=== PATIENT | female | born 1975 | race African-American/Black ===

== ENCOUNTER 2022-05-28 09:05 | Outpatient (REF) | payer OTHER, SELFPAY ==
[2022-05-28 13:06] LABS: Fentanyl, urine POSITIVE (Not Detect)
[2022-06-03 08:15] LABS: Codeine, Ur NEGATIVE; Hydrocodone, Ur NEGATIVE; Oxycodone, Ur NEGATIVE
[2022-06-03 08:16] LABS: Hydromorphone, Ur NEGATIVE; Morphine, Ur NEGATIVE; Norhydrocodone, Ur NEGATIVE; Noroxycodone, Ur NEGATIVE; Oxymorphone, Ur NEGATIVE
== END 2022-05-28 09:06 | disposition home or self-care (01) ==
LOC: HO.LAB 09:05
PROVIDERS: PCP Internal Medicine; Visit Provider Nurse Practitioner Psychiatric/Mental Health
DX: F11.20 Opioid dependence, uncomplicated (principal); Z51.81 Encounter for therapeutic drug level monitoring; Z79.899 Other long term (current) drug therapy
CPT/HCPCS: 80305; 80307; 80364; 80365; 99202

== ENCOUNTER → 2022-05-31 09:18 | Outpatient (BNVA) | payer OTHER, SELFPAY | PROVIDERS: PCP Internal Medicine; Visit Provider Nurse Practitioner Psychiatric/Mental Health | DX: F11.20 Opioid dependence, uncomplicated (principal); Z51.81 Encounter for therapeutic drug level monitoring | CPT/HCPCS: 80305; 99212 ==

== ENCOUNTER 2022-06-12 08:29 | Outpatient (REF) | payer OTHER, SELFPAY ==
[2022-06-12 09:55] LABS: Alanine Aminotransferase 35 U/L (0-31); Alkaline Phosphatase 97 U/L (39-117); Anion Gap 11 (12-20); Aspartate Amino Transferase 33 U/L (5-31); Bilirubin Total 0.6 mg/dL (0.0-1.0); Blood Urea Nitrogen 11 mg/dL (9-16); Calcium 9.1 mg/dL (8.4-10.2); Carbon Dioxide 25 mmol/L (22-29); Chloride 107 mmol/L (96-108); Estimated Glomerular Filt Rate > 60; Glucose Random 91 mg/dL (60-115); Potassium 4.3 mmol/L (3.3-5.1); Sodium 139 mmol/L (135-145); Total Protein 7.5 g/dL (6.5-8.0)
[2022-06-12 10:14] LABS: HBS Num1 69.55 mIU/mL (0-7.99); HBc Num1 0.08 S/CO (0.00-0.79); HBsAGNum1 0.24 S/CO (0.00-0.99); Hepatitis A Antibody IgM 0.38 Index (0-0.79); Hepatitis B Core Antibody Nonreactive (Nonreactive); Hepatitis B Surface Antigen Negative (Negative); ~HepC Num1 0.13 S/CO (0.00-0.79); ~Hepatitis A Antibody IgM Nonreactive (Nonreactive); ~Hepatitis B Surface Antibody REACTIVE (Nonreactive); ~Hepatitis C Antibody Nonreactive (Nonreactive)
== END 2022-06-12 08:30 | disposition home or self-care (01) ==
LOC: HO.LAB 08:29
PROVIDERS: Visit Provider Nurse Practitioner Psychiatric/Mental Health
DX: F11.20 Opioid dependence, uncomplicated (principal); Z79.899 Other long term (current) drug therapy
CPT/HCPCS: 36415; 80053; 86704; 86706; 86709; 86803; 87340; 99212

== ENCOUNTER → 2022-06-27 08:58 | Outpatient (BNVA) | payer OTHER, SELFPAY | PROVIDERS: PCP Internal Medicine; Visit Provider Nurse Practitioner Psychiatric/Mental Health | DX: Z51.81 Encounter for therapeutic drug level monitoring (principal); F11.20 Opioid dependence, uncomplicated | CPT/HCPCS: 80305; 99212 ==

== ENCOUNTER → 2022-07-15 09:02 | Outpatient (BNVA) | payer OTHER, SELFPAY | PROVIDERS: PCP Internal Medicine; Visit Provider Nurse Practitioner Psychiatric/Mental Health | DX: Z51.81 Encounter for therapeutic drug level monitoring (principal); F11.20 Opioid dependence, uncomplicated | CPT/HCPCS: 99212 ==

== ENCOUNTER → 2022-08-19 09:35 | Outpatient (BNVA) | payer OTHER, SELFPAY | PROVIDERS: PCP Internal Medicine; Visit Provider Nurse Practitioner Psychiatric/Mental Health | DX: Z51.81 Encounter for therapeutic drug level monitoring (principal); F11.20 Opioid dependence, uncomplicated | CPT/HCPCS: 80305; 99212 ==

== ENCOUNTER → 2022-09-23 09:03 | Outpatient (BNVA) | payer OTHER, SELFPAY | PROVIDERS: PCP Internal Medicine; Visit Provider Nurse Practitioner Psychiatric/Mental Health | DX: Z13.89 Encounter for screening for other disorder (principal) ==

== ENCOUNTER 2023-04-21 13:54 | Outpatient (AMB) | payer MEDICAID, SELFPAY ==
--- NOTE | 2023-04-21 14:09 | A.OFFVIS_ITS ---
Intake Vital Signs 04/21/23 14:10 BP 140/100 H Blood Pressure Location Lt brachial Position Sitting Pulse 100 Pulse Oximetry (%) 97 Comment Pt reports active withdrawal, body aches, sweats, Intake Visit Reasons: MAT Restart Allergies albumin colloid, human Allergy (Severe, Verified 08/19/22 09:39) Anaphylaxis HPI MAT Restart HPI Details Patient presents to restart treatment for OUD tapered to one film once per week would like to go back to 8mg QD Denies any illicit opioid use reports she has not been feeling well since ran out of bupre and her mood has been impacted as well no other changes--medication list updated. Review of Systems Const Reports as per HPI, Reports difficulty sleeping and Reports headache(s) ENT Reports headache(s) Neuro Reports headache(s) Physical Exam Vital Signs: Last Vital Signs Pulse 100 04/21/23 14:10 BP 140/100 H 04/21/23 14:10 Pulse Ox 97 04/21/23 14:10 Const General: cooperative, healthy appearing and no acute distress Skin General skin exam: no rashes or lesions noted Psych Appearance: well kempt Speech and movement: Clear speech present Affect: normal affect Attitude: cooperative Thought process: Normal thought process present Thought content: Normal thought content present Insight: Good insight present (Psych) Judgement: Good judgement present (Psych) Assessment & Plan Assessment & Plan (1) Opioid use disorder: Code(s): F11.90 - Opioid use, unspecified, uncomplicated Plan: * restart suboxone at 8mg QD * patient to follow up via phone by then end of the week to report sx improvement * follow up 4 weeks Medications: Changed From buprenorphine-naloxone 8-2 mg 1 film sublingual BID 42 ea 0RF To buprenorphine-naloxone 8-2 mg (Suboxone) 1 film sublingual DAILY 30 ea 0RF Coding Level of Care Code Est Pt Level 4 (59600) Diagnoses Opioid use disorder F11.90
[2023-04-21 14:10] VITALS: BP 140/100; PULSE 100; O2SAT 97
== END 2023-04-21 14:28 | disposition home or self-care (01) ==
LOC: HO.HCC 13:54
PROVIDERS: PCP Internal Medicine; Visit Provider Nurse Practitioner Psychiatric/Mental Health
DX: F11.90 Opioid use, unspecified, uncomplicated (principal)
CPT/HCPCS: 99214

== ENCOUNTER → 2023-04-21 13:54 | Outpatient (BNVA) | payer MEDICARE, MEDICAID, SELFPAY | PROVIDERS: PCP Internal Medicine; Visit Provider Nurse Practitioner Psychiatric/Mental Health | DX: F11.20 Opioid dependence, uncomplicated (principal) | CPT/HCPCS: 99212 ==

== ENCOUNTER 2023-12-19 14:59 | Outpatient (AMB) | payer MEDICARE, MEDICAID, SELFPAY ==
[2023-12-19 15:01] VITALS: BP 130/68; PULSE 83; O2SAT 99
--- NOTE | 2023-12-19 15:01 | A.OFFVISCC_ITS ---
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 Denies any percocet use since prior to starting suboxone Review of Systems Const Reports as per HPI Physical Exam Vital Signs: Last Vital Signs Pulse 83 12/19/23 15:01 BP 130/68 12/19/23 15:01 Pulse Ox 99 12/19/23 15:01 Oxygen Delivery Method Room Air 12/19/23 15:01 Const General: cooperative, ill appearing and well groomed Nutritional Appearance: thin Orientation/consciousness: patient oriented x3 Limitations: no limitations Neuro General: patient oriented x3 Assessment & Plan Assessment & Plan (1) Opioid use disorder: Code(s): F11.90 - Opioid use, unspecified, uncomplicated Category: Medical Plan: * restart suboxone 8mg daily * follow up 2 weeks Medications: Refilled buprenorphine-naloxone 8-2 mg (Suboxone) 1 film sublingual DAILY 14 ea 0RF
== END 2023-12-19 15:17 | disposition home or self-care (01) ==
PROVIDERS: PCP Internal Medicine; Visit Provider Nurse Practitioner Psychiatric/Mental Health
DX: F11.90 Opioid use, unspecified, uncomplicated (principal)
CPT/HCPCS: 99214

== ENCOUNTER → 2023-12-19 14:59 | Outpatient (BNVA) | payer MEDICARE, MEDICAID, SELFPAY | PROVIDERS: PCP Internal Medicine; Visit Provider Nurse Practitioner Psychiatric/Mental Health | DX: F11.20 Opioid dependence, uncomplicated (principal); Z79.899 Other long term (current) drug therapy; Z51.81 Encounter for therapeutic drug level monitoring | CPT/HCPCS: 99212 ==

== ENCOUNTER 2024-02-24 10:32 | Outpatient (AMB) | payer MEDICARE, SELFPAY ==
[2024-02-24 11:01] VITALS: BP 140/90; PULSE 88; RESP 16
--- NOTE | 2024-02-24 11:01 | MHC.AM.SUB ---
Vital Signs 02/24/24 11:01 BP 140/90 H Blood Pressure Location Lt brachial Position Sitting Respiration 16 Pulse 88 Pulse Source Auscultation Comment Pt attributes elevated BP to being angry. Denies S/S of htn Intake Visit Reasons: MAT Office Allergies albumin colloid, human Allergy (Severe, Verified 08/19/22 09:39) Anaphylaxis HPI HPI MAT Office: Details: Patient presents for follow up Last visit to office was May Patient tearful, reports feeling overwhelmed still not taking any of her liver medications, but reports she has been following up with liver clinic Discussed suboxone, challenging to understand how much patient is taking daily as she reports taking 1/2 film up to twice daily, however, she was only prescribed 14 films 2 months ago She shared that she has been buying them in the street occasionally as well. Denies any percocet use Review of Systems Const Reports as per HPI, Reports lethargy, Reports malaise and Reports poor appetite Physical Exam Vital Signs: Last Vital Signs Pulse 88 02/24/24 11:01 Resp 16 02/24/24 11:01 BP 140/90 H 02/24/24 11:01 Const General: cooperative, anxious and tired appearing Nutritional Appearance: thin Orientation/consciousness: patient oriented x3 Neuro General: patient oriented x3 Psych Affect: Sad affect present and Anxious affect present Attitude: cooperative Thought process: Circumstantial thought process present Thought content: Depressive thoughts present Assessment & Plan Assessment & Plan (1) Opioid use disorder: Code(s): F11.90 - Opioid use, unspecified, uncomplicated Category: Medical Plan: suboxone 4mg filled follow up 4 weeks provided information on [facility] --encouraged to call Medications: New buprenorphine-naloxone 4-1 mg (Suboxone) 1 film buccal Q24H 30 ea 1RF Discontinued buprenorphine-naloxone 8-2 mg (Suboxone) Discontinued Reason: Doctor's Order 1 film sublingual DAILY 14 ea 0RF
== END 2024-02-24 11:18 | disposition home or self-care (01) ==
PROVIDERS: PCP Internal Medicine; Visit Provider Nurse Practitioner Psychiatric/Mental Health
DX: F11.90 Opioid use, unspecified, uncomplicated (principal)
CPT/HCPCS: 99443

== ENCOUNTER → 2024-02-24 10:32 | Outpatient (BNVA) | payer MEDICARE, MEDICAID, SELFPAY | PROVIDERS: PCP Internal Medicine; Visit Provider Nurse Practitioner Psychiatric/Mental Health ==

== ENCOUNTER 2024-07-14 14:26 | Outpatient (AMB) | payer MEDICARE, MEDICAID, SELFPAY ==
--- NOTE | 2024-07-14 14:36 | A.OFFVISCC_ITS ---
Intake Visit Reasons: MAT Allergies albumin colloid, human Allergy (Severe, Verified 08/19/22 09:39) Anaphylaxis Medication List - Last Reconciled 07/14/24 by Morena Carter CNP buprenorphine-naloxone 2-0.5 mg (Suboxone) 1 film buccal DAILY HPI HPI MAT: Details: Patient presents as walk in for continuation of treatment for HARLEEN Last seen in office in January At that time was given prescription for 30days Has not been working, financial stresses Has not seen liver specialist recently had MRI--does not want to open the results, she is nervous Appears very thin and speech somewhat pressured Somewhat guarded when asked about numerous, significant life changes Denies any opiate use -- Denies alcohol use Review of Systems Const Reports as per HPI Physical Exam Const General: well groomed Nutritional Appearance: thin Limitations: no limitations Psych Speech and movement: Pressured speech present Affect: Animated affect present Attitude: cooperative and Guarded attititude/behavior present Thought process: Circumstantial thought process present Insight: Limited insight present (Psych) Judgement: Fair judgement present (Psych) Assessment & Plan Assessment & Plan (1) Opioid use disorder: Code(s): F11.90 - Opioid use, unspecified, uncomplicated Category: Medical Plan: * suboxone 2mg daily * follow up 2 weeks Medications: New buprenorphine-naloxone 2-0.5 mg (Suboxone) 1 film buccal DAILY 14 ea 1RF Discontinued buprenorphine-naloxone 4-1 mg (Suboxone) Discontinued Reason: Doctor's Order 1 film buccal Q24H 30 ea 1RF Suboxone 4-1 mg (buprenorphine-naloxone) Discontinued Reason: Doctor's Order 2 film buccal Q24H 10 ea 0RF NS
== END 2024-07-14 14:51 | disposition home or self-care (01) ==
PROVIDERS: PCP Internal Medicine; Visit Provider Nurse Practitioner Psychiatric/Mental Health
DX: F11.90 Opioid use, unspecified, uncomplicated (principal)
CPT/HCPCS: 99214

== ENCOUNTER → 2024-07-14 14:26 | Outpatient (BNVA) | payer MEDICARE, SELFPAY | PROVIDERS: PCP Internal Medicine; Visit Provider Nurse Practitioner Psychiatric/Mental Health | DX: F11.20 Opioid dependence, uncomplicated (principal) | CPT/HCPCS: 99212 ==

== ENCOUNTER 2024-08-02 14:01 | Outpatient (AMB) | payer MEDICARE, MEDICAID, SELFPAY ==
[2024-08-02 14:14] VITALS: BP 158/98
--- NOTE | 2024-08-02 14:14 | AM.OFFVISNUR ---
Vital Signs 08/02/24 14:14 BP 158/98 H Blood Pressure Location Rt brachial Position Sitting Intake Visit Reasons: MAT Allergies albumin colloid, human Allergy (Severe, Verified 08/19/22 09:39) Anaphylaxis
--- NOTE | 2024-08-02 14:19 | A.OFFVISCC_ITS ---
Vital Signs 08/02/24 14:14 BP 158/98 H Blood Pressure Location Rt brachial Position Sitting Intake Visit Reasons: MAT Allergies albumin colloid, human Allergy (Severe, Verified 08/19/22 09:39) Anaphylaxis HPI HPI MAT: Details: Patient presents for follow up Has been taking suboxone 2mg daily (taking it in the evenings) consistently for 2 weeks denies any side effects and finds that anxiety is well managed Appearing much more comfortable and well kempt Review of Systems Const Reports as per HPI and Reports no additional complaints Physical Exam Vital Signs: Last Vital Signs BP 158/98 H 08/02/24 14:14 Const General: cooperative, healthy appearing, comfortable, awake and well groomed Nutritional Appearance: thin Orientation/consciousness: patient oriented x3 Limitations: no limitations Neuro General: patient oriented x3 Psych Appearance: well kempt Speech and movement: Normal speech and movement present Affect: normal affect Attitude: cooperative Thought process: Normal thought process present and Circumstantial thought process present Thought content: Normal thought content present Insight: Fair insight present (Psych) Judgement: Good judgement present (Psych) Assessment & Plan Assessment & Plan (1) Opioid use disorder: Code(s): F11.90 - Opioid use, unspecified, uncomplicated Category: Medical Plan: * continue suboxone at current dose * follow up 2 weeks Medications: Refilled buprenorphine-naloxone 2-0.5 mg (Suboxone) 1 film buccal DAILY 14 ea 0RF
== END 2024-08-02 14:49 | disposition home or self-care (01) ==
PROVIDERS: PCP Internal Medicine; Visit Provider Nurse Practitioner Psychiatric/Mental Health
DX: F11.90 Opioid use, unspecified, uncomplicated (principal)
CPT/HCPCS: 99213

== ENCOUNTER → 2024-08-02 14:01 | Outpatient (BNVA) | payer MEDICARE, SELFPAY | PROVIDERS: PCP Internal Medicine; Visit Provider Nurse Practitioner Psychiatric/Mental Health | DX: F11.20 Opioid dependence, uncomplicated (principal) | CPT/HCPCS: 99212 ==

== ENCOUNTER 2024-09-20 13:43 | Outpatient (AMB) | payer MEDICARE, MEDICAID, SELFPAY ==
--- NOTE | 2024-09-20 13:53 | A.OFFVISCC_ITS ---
Intake Visit Reasons: MAT Office Allergies albumin colloid, human Allergy (Severe, Verified 08/19/22 09:39) Anaphylaxis HPI HPI MAT Office: Details: Patient presents for OUD treatment follow up Currently prescribed Suboxone 2mg QD Reports that she has been taking 2mg BID on several days due to increasing anxiety/withdrawal sx Discussed taking medication as prescribed--and will increase dose to 2mg BID Review of Systems Const Reports as per HPI, Reports body aches, Reports chills, Reports difficulty sleeping and Reports malaise GI Reports nausea Physical Exam Const General: cooperative, healthy appearing, comfortable, awake and well groomed Nutritional Appearance: thin Orientation/consciousness: patient oriented x3 Limitations: no limitations Neuro General: patient oriented x3 Psych Appearance: well kempt Speech and movement: Normal speech and movement present Affect: normal affect Attitude: cooperative Thought process: Normal thought process present and Circumstantial thought process present Thought content: Normal thought content present Insight: Fair insight present (Psych) Judgement: Good judgement present (Psych) Assessment & Plan Assessment & Plan (1) Opioid use disorder: Code(s): F11.90 - Opioid use, unspecified, uncomplicated Category: Medical Plan: * increase suboxone to 2mg BID * follow up 2 weeks Medications: Changed From buprenorphine-naloxone 2-0.5 mg 1 film buccal DAILY 14 ea 0RF To buprenorphine-naloxone 2-0.5 mg (Suboxone) 1 film buccal BID 60 ea 0RF
--- OUTSIDE RECORDS SUMMARY | 2024-09-20 15:42 | XMS_ITS | Clinical Summary ---
Author Organization [facility] Address [address] [place] [address] Phone Care Team Providers Care Director [employer] Name Role Phone Chris Hernandez MD Primary Care Provider [phone] Allergies No known active allergies Surgical History Surgery Date Site/Laterality Comments CHOLECYSTECTOMY PROCEDURE: HISTORICAL CHOLECYSTECTOMY OTHER SURGICAL HISTORY 06/27/2020 PROCEDURE: CA BIOPSY LIVER WEDGE; COMMENT: by Dr. Duke Mendieta - liver with cirrhosis and granulomatous inflammation, mild macrosteatosis OTHER SURGICAL HISTORY 06/27/2020 PROCEDURE: CA LAPS SURG CHOLECYSTECTOMY W/CHOLANGIOGRAPHY; COMMENT: by Dr. Duke Mendieta - chronic cholecystitis and cholelithiasis Medical History Medical History Date Comments Decreased appetite DX:Decreased appetite GERD (gastroesophageal reflux disease) DX:GERD (gastroesophageal reflux disease) Fatty liver DX:Fatty liver Gallstones DX:Gallstones Colitis DX:Colitis Diarrhea DX:Diarrhea Elevated liver enzymes DX:Elevat ed liver enzymes History of alcohol abuse DX:Hist ory of alcohol abuse Hepatomegaly DX:Hepatomegaly Cirrhosis (CMS/HCC) DX:Cirrhosis (HCC) Autoimmune cholangitis (CMS/HCC) DX:Autoimmune cholangitis Depression with anxiety 02/07/2022 DX:Depre ssion with anxiety Family History Relation Name Status Comments Mother Alive Social History Tobacco Use Types Packs/Day Years Used Date Smoking Tobacco: Former Smokeless Tobacco: Never Alcohol Use Standard Drinks/Week Comments No 0 (1 standard drink = 0.6 oz pur e alcohol) Comments Unknown Sex and Gender Information Value Date Recorded Sex Assigned at Not on file Legal Sex Female 10:46 PM EST Gender Identity Not on file Sexual Orientation Not on file Obstetrics History Last Filed Vital Signs Vital Sign Reading Time Taken Comments Blood Pressure 110/64 02/07/2022 3:32 PM EDT Pulse 72 02/07/2022 3:32 PM EDT Temperature - - Respiratory Rate - - Oxygen Saturation - - Inhaled Oxygen Concentration - - Weight 80.4 kg (177 lb 4.8 oz) 02/07/2022 3:32 P M EDT Height 160 cm (5' 3 ) 02/07/2022 3:32 PM EDT Body Mass Index 31.41 02/07/2022 3:32 PM EDT Plan of Treatment Health Maintenance Due Date Last Done Comments Cervical Cancer Screening: P ap Smear 1998 Cholesterol Screening (Lipid Panel) 06/30/2022 Colorectal Cancer Screening: Colonoscopy 06/30/2022 Depression Screening 06/30/2022 HIV Screening 06/30/2022 Medicare Annual Wellness Visit 06/30/2022 Social Influencers of Health Screening 06/30/2022 Breast Cancer Screening 01/31/2023 01/31/2021 COVID-19 Vaccine ( - 2023-2 5 season) 2024 11/17/2021, 05/15/2021, 04/05/2021 Influenza Vaccine (#1) 2024 04/05/2021 Hypertension/CHF/CAD Annual BMP Blood Test 06/17/2024 Pneumococcal Vaccine: Pediatrics (0 to 5 Years) and At-Risk Patients (6 to 64 Years) (3 of 3 - PCV20 or PCV21) 2027 12/22/2020, 08/21/2006 DTaP,Tdap,and Td Vaccines (3 - Td or Tdap) 12/22/2030 12/22/2020, 05/10/2016 Hepatitis B Vaccines Completed 09/26/2020, 08/29/2020 Hepatitis C Screening Completed 12/18/2020 Hepatitis A Vaccines Completed 02/26/2021, 08/29/2020 HIB Vaccines Aged Out No longer eligi ble based on patient's age to complete this topic HPV Vaccines Aged Out No longer eligi ble based on patient's age to complete this topic IPV Vaccines Aged Out No longer eligi ble based on patient's age to complete this topic MMR Vaccines Aged Out No longer eligi ble based on patient's age to complete this topic Meningococcal ACWY Vaccine Aged Out N o longer eligible based on patient's age to complete this topic Meningococcal B Vacine Aged Out No lo nger eligible based on patient's age to complete this topic RSV Immunization Patients Under 20 months Aged Out No longer eligible b ased on patient's age to complete this topic Varicella Vaccines Aged Out No longer eligible based on patient's age to complete this topic Procedures Procedure Name Priority Date/Time Associated Diagnosis Comments [facility] SCREENING DIGITAL Routine 01/31/2021 2:13 PM EDT Encounter for screening mammogram for malignant neoplasm of breast from Last 3 Months or Most Recently Relevant to Health Maintenance Results * [facility] SCREENING DIGITAL (01/31/2021 2:13 PM EDT) Anatomical Region Laterality Modality Mammography 01/31/2021 9:22 AM EDT Narrative 01/31/2021 2:13 PM EDT [facility] Diagnostic Imaging Department [address] [place] [id number] Patient: ??DELORES MONTALVO ?/Age/Sex: 1975 - 45 - F Unit#: ??[id number] ? Location/Status: ??SPDIMAM/REG CLI ? Mnemonic/Ordering Site: ??DIGSC/SPMAM Ordering Physician: ??BERTHA BELL MD [facility] Screening Digital - 01/31/21952 EXAM: [facility] Screening Digital EXAM DATE AND TIME: 01/31/2021 9:54 AM HISTORY: ??Screening. Baseline exam. COMPARISON: ??No comparison studies. TECHNIQUE: CC and MLO views of both breasts were obtained using full field digital mammography. Bilateral digital breast tomosynthesis was performed in the MLO projection. Computer aided detection with the [address]2-H was employed. TISSUE DENSITY: d. The breasts are extremely dense, which lowers the sensitivity of mammography. FINDINGS: No suspicious masses, grouped microcalcifications, or areas of architectural distortion are seen. Extensive vascular calcification is present. The skin is u nremarkable. IMPRESSION: No mammographic evidence of malignancy is seen. A negative mammogram in the presence of a clinically suspicious palpable abnormality does not preclude the possibility of malignancy or alter the indications for biopsy. BI-RADS: ??Category 2: Benign RECOMMENDATION(S): 1: Routine screening mammogram BILATERAL in 1 year. 37260, 85208 3342F, 7025F Dictating Physician: ??LINDA BROOKS MD Electronically Signed by: ??LINDA BROOKS MD Dic Date/Time: ??01/31/21 1412 Sign date/Time: ??01/31/21 1413 Procedure Note Linda Brooks MD - 07/24/2022 [facility] Diagnostic Imaging Department [address] [place] [address] Patient: DELORES MONTALVO./Age/Sex: 1975 - 45 - F Unit#: [id number] Location/Status: [facility] Mnemonic/Ordering Site: [facility] Ordering Physician: BERTHA BELL MD [facility] Screening Digital - 01/31/21 - 952 EXAM: [facility] Screening Digital EXAM DATE AND TIME: 01/31/2021 9:54 AM HISTORY: Screening. Baseline exam. COMPARISON: No comparison studies. TECHNIQUE: CC and MLO views of both breasts were obtained using fullfield digital mammography. Bilateral digital breast tomosynthesis was performedin the MLO projection. Computer aided detection with the [employer] employed. TISSUE DENSITY: d. The breasts are extremely dense, which lowers the sensitivity of mammography. FINDINGS: No suspicious masses, grouped microcalcifications, or areas ofarchitectural distortion are seen. Extensive vascular calcification is present. The skinis u nremarkable. IMPRESSION: No mammographic evidence of malignancy is seen. A negative mammogram in the presence of a clinically suspicious palpable abnormality does not preclude the possibility of malignancy or alter the indications for biopsy. BI-RADS: Category 2: Benign RECOMMENDATION(S): 1: Routine screening mammogram BILATERAL in 1 year. 26431, 84959 3342F, 7025F Dictating Physician: LINDA BROOKS MD Electronically Signed by: LINDA BROOKS MD Dic Date/Time: 01/31/21 1412 Sign date/Time: 01/31/21 1413 Bertha Bell MD IMG BI PROCEDURES Final Result from Last 3 Months or Most Recently Relevant to Health Maintenance Insurance [place] Care Teams Director [employer] Relationship Specialty Start Date End Date Chris Hernandez MD PCP - General Internal Medicine 02/07/22
--- OUTSIDE RECORDS SUMMARY | 2024-09-20 15:42 | XMS_ITS | Encounter Summary ---
Author Organization [facility] Address [address] [place] [address] Care Team Providers Care Counter Maker Name Role Phone Bertha Bell Primary Care Provider Encounter Details Date Type Department Care Team (Late st Contact Info) Description 10/24/2020 Orders Only [facility] CT Scan [address], [place] [phone] Henrik Morales MD [address] [place] [address] Social History Tobacco Use Types Packs/Day Years Used Date Smoking Tobacco: Some Days Smokeless Tobacco: Never Comments:one cigarette per d ay Alcohol Use Standard Drinks/Week Comments Not Currently 0 (1 standard drink = 0.6 oz pur e alcohol) Comments Unknown Sex and Gender Information Value Date Recorded Sex Assigned at Female 09/12/2022 11:46 AM EST Legal Sex Female 3:37 AM EDT Gender Identity Female 09/12/2022 11:46 AM EST Sexual Orientation Straight 09/12/2022 11 :46 AM EST documented as of this encounter Plan of Treatment Upcoming Encounters Date Type Department Care Team (Late st Contact Info) Description 12/27/2024 11:30 AM EDT Follow-Up [facility] Liver Transplant Services [address], [place] [phone] Melony Jules MD [address] [place], [place] [phone] documented as of this encounter Visit Diagnoses Not on filedocumented in this encounter Care Teams Counter Maker Relationship Specialty Start Date End Date O'Bertha Medina PCP - General Family Medicine 08/29/20 documented as of this encounter
--- OUTSIDE RECORDS SUMMARY | 2024-09-20 15:42 | XMS_ITS | Encounter Summary ---
Author Organization [facility] Address [address] [place] [address] Care Team Providers Care Mixed Livestock Farm Worker Name Role Phone CrystalBrennanaBertha Primary Care Provider [phone] Encounter Details Date Type Department Care Team (Late st Contact Info) Description 10/31/2023 Orders Only [facility] 2 Rad ACT 1 [address] [place] [address] Liz Garcia MD [address] [place] [address] Social History Tobacco Use Types Packs/Day Years [...] Info) Description 12/27/2024 11:30 AM EDT Follow-Up [facility] Liver Transplant Services [address] [place], [place] [phone] Melony Jules MD [address] [place] [address] documented as of this encounter Visit Diagnoses Not on filedocumented in this encounter Care Teams Mixed Livestock Farm Worker Relationship Specialty Start Date End Date Britni Bellah PCP - General Family Medicine 08/29/20 documented as of this encounter
--- OUTSIDE RECORDS SUMMARY | 2024-09-20 15:42 | XMS_ITS | Encounter Summary ---
Author Organization [facility] Address [address] [place] [address] Care Team Providers Care Pumping Plant Operator Name Role Phone Bertha Bell Primary Care Provider [phone] Encounter Details Date Type Department Care Team (Late st Contact Info) Description 05/03/2024 Orders Only [facility] ACC Building Mammography [address] [place] [address] 5[address] [place] [address] Yohan Wilson MD [address] [place] [phone] Social History Tobacco Use Types Packs/Day Years [...] Info) Description 12/27/2024 11:30 AM EDT Follow-Up [facility] Liver Transplant Services [address] [place] [phone] Melony Jules MD [address] [place] [phone] documented as of this encounter Visit Diagnoses Not on filedocumented in this encounter Care Teams Pumping Plant Operator Relationship Specialty Start Date End Date Ray Bertha PCP - General Family Medicine 08/29/20 documented as of this encounter
--- OUTSIDE RECORDS SUMMARY | 2024-09-20 15:42 | XMS_ITS | Encounter Summary ---
Author Organization [facility] Address [address] [place] [address] Care Team Providers Care Bond Clerk Name Role Phone Bertha Bell Primary Care Provider [phone] Encounter Details Date Type Department Care Team (Late st Contact Info) Description 10/24/2020 Orders Only [facility] Interventional Radiology [address] [place] [address] Eddie Mejia MD [address] [place] [address] Social History Tobacco Use Types Packs/Day Years [...] Info) Description 12/27/2024 11:30 AM EDT Follow-Up [facility] Liver Transplant Services [address] [place] [address] Melony Jules MD [address] [place] [id number] documented as of this encounter Visit Diagnoses Not on filedocumented in this encounter Care Teams Bond Clerk Relationship Specialty Start Date End Date O'Medina, Bertha PCP - General Family Medicine 08/29/20 documented as of this encounter
--- OUTSIDE RECORDS SUMMARY | 2024-09-20 15:42 | XMS_ITS | Encounter Summary ---
Author Organization [facility] Address [address] [place] [address] Care Team Providers Care Currency Counter Name Role Phone Bertha Bell Primary Care Provider Encounter Details Date Type Department Care Team (Late st Contact Info) Description 02/16/2021 Lab Requisition [facility] Three Lab [address] [place] [address] Fritz Chew MD Social History Tobacco Use Types Packs/Day Years [...] Info) Description 12/27/2024 11:30 AM EDT Follow-Up [facility] Liver Transplant Services [address] [place] [address] Melony Jules MD [address] [place] [address] documented as of this encounter Procedures * Due to [place] state law, this organization might not be sharing negative HIV tests. Procedure Name Priority Date/Time Associated Diagnosis Comments TISSUE EXAM Routine 02/16/2021 11:46 AM EDT documented in this encounter Results * Due to [place] state law, this organization might not be sharing negative HIV tests. * (ABNORMAL) Tissue Exam (02/16/2021 11:46 AM EDT) Final Diagnosis Review of Outside Slides Received from [facility], [place], [place], Labeled [id number] , Procedure Date 11/07/2020: Liver, Biopsy: - Moderate portal and lobular mixed inflammation with rare granuloma and cirrhosis (Stage 4 of 4). See comment. Comment: The biopsy shows moderate portal inflammation predominantly lymphocytes, some plasma cells and rare eosinophils and rare portal granuloma formation. Focal interface inflammation is also seen. There is focal bile duct loss with ductular reaction. No steatosis is present. Trichrome stain shows extensive nodular fibrosis and cirrhosis (stage 4 of 4). Iron stain is negative. PAS/D stain is negative for intracytoplasmic globules. The overall findings are non-specific for the etiology of cirrhosis. Differential diagnosis include primary biliary cholangitis (PBC), infections, sarcoidosis (with a history of pulmonary sarcoidosis was noted from [facility]) and among others. Unstained tissue slides were requested from the outside hospital for additional study and result will be reported in an addendum if tissue is received. [employer] MANUAL 02/26/2021 10:01 AM EDT [facility] Clinical History Increased LFT's [employer] MANUAL 02/26/2021 10:01 AM EDT [facility] Gross Consult Client Facility: [facility] Slide Identification: [id number] Number of Glass Slides Received: 6 Number of Blocks Received: 0 Client Pathologist: Madelin Verdin MD Accompanying Report Received: Yes [employer] MANUAL 02/26/2021 10:01 AM EDT [facility] Gross Description User Grossing complete by Yeimi Ojeda on 02/16/2021 11:46 AM Matthew Kenney [employer] MANUAL 02/26/2021 10:01 AM EDT [facility] Embedded Images [employer] MANUAL 02/26/2021 10:01 AM EDT [facility] Resulting Agency Case was signed out at [facility], Department of Pathology, [facility] 3 CLIA [id number] [facility] MANUAL 02/26/2021 10:01 AM EDT [facility] Abnormal Yes(A) (none) [facility] MANUAL 02/26/2021 10:01 AM EDT [facility] Tissue Liver structure / Unknown 02/16/2021 11:46 AM EDT 02/16/2021 11:46 AM EDT us Fritz Chew MD LAB PATHOLOGY/CYTOLOGY ORDERABLE S Final Result [facility] [address] [place] [address] documented in this encounter Visit Diagnoses Not on filedocumented in this encounter Care Teams Currency Counter Relationship Specialty Start Date End Date Bertha Bell PCP - General Family Medicine 08/29/20 documented as of this encounter
--- OUTSIDE RECORDS SUMMARY | 2024-09-20 15:42 | XMS_ITS ---
Author Organization [facility] Address [address] [place] [address] Care Team Providers Care V Belt Inspector Name Role Phone RayBertha Primary Care Provider [phone] Transplant Episode Liver Candidate [facility] ([place], [place]) - [facility] Center waitlisted on 10/03/2021 Marked as Active on 10/03/2021 Liver CoordinatorIvelisse Rod RN Phone: N/A Fax: N/A Email: N/A Scores Score Value Updated Expires Exceptions/[place] sons CPRA Not available UNOS MELD 8 03/04/2024 03/04/2025 MELD (Calc) 8 03/03/2024 [place] [facility] Organ Diagnosis Organ Primary Contributory Liver Alcoholic Cirrhosis Care Team Name Role Phone Fax Email Ivelisse Rod RN Liver Coordinator N/A N/A N/A Melony Jules MD Supervisor Alteration Workroom [phone] [email or web address] Referring Physician [phone] N/A Events Pre-Transplant Referred: 08/29/2020 Evaluation began: 12/18/2020 Committee: 02/14/2021 Center waitlisted: 10/03/2021 Appointments (08/20/2024 - 10/18/2024) When With Visit Type Description 08/26/2024 Transplant - Toby Jules Follow Up No Sh ow
--- OUTSIDE RECORDS SUMMARY | 2024-09-20 15:42 | XMS_ITS | Clinical Summary ---
Author Organization [facility] Address [address] [place] [address] Care Team Providers Care Director Medicare Sales Name Role Phone Bertha Bell Primary Care Provider [phone] Allergies Active Allergy Reactions Criticality Noted Date Comments Albumin Colloid, Human Hives 12/22/2020 Factor Ix Rec, Albumin Fusion Dyspnea,Rash High 08/2020 Medications ProAir HFA 90 mcg/actuation inhaler Inhale by mouth. 03/29/2021 Active fluticasone propionate (FLONASE) 50 mcg/actuation nasal spray 06/02/2021 Active lactulose 20 gram/30 mL solution Take 30 mL (20 g total) by mouth once a day. 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 08/11/2020 Acute pain of left knee 12/17/2018 Elevated liver enzymes 11/17/2018 Weakness of right lower extremity 11/17/2018 Alcohol use disorder, moderate, in early remissi on Resolved Problems Problem Noted Date Diagnosed Date Resolved Date 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 Immunizations Immunization Administration Dates Next Due Hepatitis A Vaccine, Adult Dosage 02/26/2021,08/2020 Hepatitis B vaccine (HEPLISAV-B) vaccine 0.5 mL IM 09/26/2020,08/29/2020 Pneumococcal Conjugate Vaccine, 13 Valent 2020 Tetanus Toxoid, Reduced Diph theria Toxoid, and Acellular Pertussis Vaccine, Adsorbed 12/22/2020 Family History Medical History Relation Name Comments Cirrhosis Father Diabetes Father Hypertension Mother Relation Name Status Comments Father Mother Alive Social History Tobacco Use Types Packs/Day Years Used Date Smoking Tobacco: Some Days Smokeless Tobacco: Never Tobacco Cessation:Ready to Q uit: Not Asked; Counseling Given: Not Answered Comments:one cigarette per day Alcohol Use Standard Drinks/Week Comments Not Currently 0 (1 standard drink = 0.6 oz pur e alcohol) Comments Unknown Sex and Gender Information Value Date Recorded Sex Assigned at Female 09/12/2022 11:46 AM EST Legal Sex Female 3:37 AM EDT Gender Identity Female 09/12/2022 11:46 AM EST Sexual Orientation Straight 09/12/2022 11 :46 AM EST Last Filed Vital Signs Vital Sign Reading Time Taken Comments Blood Pressure 123/78 03/05/2022 12:00 PM EDT Pulse 72 03/05/2022 12:00 PM EDT Temperature 36 ??C (96.8 ??F) 09/18/2021 10:35 AM EST Respiratory Rate 18 03/05/2022 12:00 PM EDT Oxygen Saturation 95% 03/05/2022 12:00 PM EDT Inhaled Oxygen Concentration - - Weight 65.8 kg (145 lb) 10/30/2023 3:45 PM EDT Height 157.5 cm (5' 2 ) 12/22/2020 9:40 AM EDT Body Mass Index 26.52 12/22/2020 9:40 AM EDT Plan of Treatment Upcoming Encounters Date Type Department Care Team (Late st Contact Info) Description 12/27/2024 11:30 AM EDT Follow-Up [facility] Liver Transplant Services [address] [place] [address] Melony Jules MD [address] [place] [address] Health Maintenance Due Date Last Done Comments Cervical Cancer Screening 1977 Cologuard 1977 Colon Cancer Screening 1977 Colonoscopy 1977 FOBT / Fit Test 1977 HPV and Pap Smear 1977 Pap Smear 1977 Sigmoidoscopy 1977 Mammogram 2017 COVID-19 Vaccine ( - season) 2024 11/17/2021, 05/15/2021, 04/05/2021 Influenza Vaccine (#1) 2024 04/05/2021 Alcohol/Substance Use Screening 07/28/2024 Depression Evaluation 07/28/2024 Social Drivers of Health Estefani ual Screening 07/28/2024 Pneumococcal Vaccine: Pediat paula (0-5 Years) and At-Risk Patients (6-50 Years) (3 of 3 - PCV20 or PCV21) 2027 12/22/2020, 08/21/2006 DTaP,Tdap,and Td Vaccines (2 - Td or Tdap) 12/22/2030 12/22/2020, 05/10/2016 RSV Vaccine (60+ years old a nd patients) (1 - 1-dose 75+ series) 02/05/2052 Hepatitis B Vaccines Completed 09/26/2020, 08/29/19 21 HIV Screening Completed 12/18/2020 Hepatitis C Screening Completed 12/18/2020 Procedures * Due to [place] [employer] law, this organization might not be sharing negative HIV tests. Procedure Name Priority Date/Time Associated Diagnosis Comments HEPATITIS C ANTIBODY W/REFLEX TO HCV RNA, QUANTITATIVE PCR Routine 12/18/2020 10:52 AM EDT Encounter for pre-transplant evaluation for liver transplant from Last 3 Months or Most Recently Relevant to Health Maintenance Results * Due to [place] [employer] law, this organization might not be sharing negative HIV tests. * Hepatitis C Antibody w/Reflex to PCR (12/18/2020 10:52 AM EDT) Hepatitis C Antibody NON-REACT FATOU NON-REACT FATOU 12/18/2020 9:08 PM EDT [employer] Signal To Cut-Off 0.10 <1.00 12/18/2020 9:08 PM EDT [employer] Comment: HCV antibody was non-reactive. There is no laboratory evidence of HCV infection. In most cases, no further action is required. However, if recent HCV exposure is suspected, a test for HCV RNA (test code 34474) is suggested. For additional information please refer to http://education.Traveler | VIP/faq/CMS49u8 (This link is being provided for informational/ educational purposes only.) Blood Structure of peripheral vein / Unknown Venipuncture / Unknown 12/18/2020 10:52 AM EDT 12/18/2020 11:28 AM EDT [facility] - 12/18/2020 9:08 PM EDT [facility] Received Date: Will Mclaughlin MD LAB BLOOD ORDERABLES Final Re sult [facility] [address] [facility] [address]rd [facility], [place] [address], [id number] [facility] [address], [place] [address], from Last 3 Months or Most Recently Relevant to Health Maintenance Insurance MEDICARE [facility] MEDICARE [facility] Advance Directives Documents on File Type Date Recorded Patient Cloth Bleaching Range Back Tender Expl [facility] Health Care Proxy 01/09/2021 12:04 PM - Care Teams Director Medicare Sales Relationship Specialty Start Date End Date Bertha Bell PCP - General Family Medicine 08/29/20"
--- OUTSIDE RECORDS SUMMARY | 2024-09-20 15:42 | XMS_ITS | Referral Summary ---
Author Organization [facility] Address [address] [place] [address] Care Team Providers Care Parallel Computing Software Engineer Name Role Phone Bertha Bell Primary Care Provider [phone] Allergies Active Allergy Reactions Criticality Noted Date [...] Toxoid, and Acellular Pertussis Vaccine, Adsorbed 12/22/2020 Social History Tobacco Use Types Packs/Day Years [...] Follow-Up [facility] Liver Transplant Services [address] [place] [address] Melony Jules MD [address] [place] [address] Procedures * Due to [place] [employer] law, this organization might not be sharing negative HIV tests. Procedure Name Priority Date/Time Associated Diagnosis Comments HEPATITIS C ANTIBODY W/REFLEX TO HCV RNA, QUANTITATIVE PCR Routine 12/18/2020 10:52 AM EDT Encounter for pre-transplant evaluation for liver transplant from Last 3 Months or Most Recently Relevant to Health Maintenance Results * Due to [place] [employer] law, this organization might not be sharing negative HIV tests. * Hepatitis C Antibody w/Reflex to PCR (12/18/2020 10:52 AM EDT) Hepatitis C Antibody NON-REACT FATOU NON-REACT FATOU 12/18/2020 9:08 PM EDT [employer] Signal To Cut-Off 0.10 <1.00 12/18/2020 9:08 PM EDT [employer] Comment: HCV antibody was non-reactive. There is no laboratory evidence of HCV infection. In most cases, no further action is required. However, if recent HCV exposure is suspected, a test for HCV RNA (test code 78564) is suggested. For additional information please refer to http://education.[employer] Products/faq/TFC63b9 (This link is being provided for informational/ educational purposes only.) Blood Structure of peripheral vein / Unknown Venipuncture / Unknown 12/18/2020 10:52 AM EDT 12/18/2020 11:28 AM EDT Narrative [facility] 12/18/2020 9:08 PM EDT [facility] Received Date: us Will Mclaughlin MD LAB BLOOD ORDERABLES Final Re sult [facility] [address] [facility] 3rd Floor, [place] [address], [place] [phone] [employer] [facility] [address] [facility] 3rd Floor, [place] [address], [place] [phone] from Last 3 Months or Most Recently Relevant to Health Maintenance Insurance MEDICARE MEDICARE Advance Directives Documents on File Type Date Recorded Patient Screen Cutter And Trimmer Expl [facility] Health Care Proxy 01/09/2021 12:04 PM 05-2 Care Teams Parallel Computing Software Engineer Relationship Specialty Start Date End Date Ray Bertha PCP - General Family Medicine 08/29/20
== END 2024-09-20 14:35 | disposition home or self-care (01) ==
PROVIDERS: PCP Internal Medicine; Visit Provider Nurse Practitioner Psychiatric/Mental Health
DX: F11.90 Opioid use, unspecified, uncomplicated (principal)
CPT/HCPCS: 99214

== ENCOUNTER → 2024-09-20 13:43 | Outpatient (BNVA) | payer MEDICARE, MEDICAID, SELFPAY | PROVIDERS: PCP Internal Medicine; Visit Provider Nurse Practitioner Psychiatric/Mental Health | DX: F11.20 Opioid dependence, uncomplicated (principal); Z79.899 Other long term (current) drug therapy | CPT/HCPCS: 99212 ==

== ENCOUNTER 2024-12-06 14:02 | Outpatient (AMB) | payer MEDICARE, MEDICAID, SELFPAY ==
[2024-12-06 14:17] VITALS: BP 150/98; PULSE 95; O2SAT 100
--- NOTE | 2024-12-06 14:17 | MHC.AM.SUB ---
Vital Signs 12/06/24 14:17 BP 150/98 H Blood Pressure Location Rt brachial Position Sitting Pulse 95 Pulse Oximetry (%) 100 Oxygen Delivery Method Room Air Intake Visit Reasons: MAT visit Allergies albumin colloid, human Allergy (Severe, Verified 08/19/22 09:39) Anaphylaxis HPI HPI MAT visit: Details: She is doing well with Suboxone Review of Systems Const All systems reviewed & are unremarkable except as noted in HPI and below Physical Exam Vital Signs: Last Vital Signs Pulse 95 12/06/24 14:17 BP 150/98 H 12/06/24 14:17 Pulse Ox 100 12/06/24 14:17 Oxygen Delivery Method Room Air 12/06/24 14:17 Const General: cooperative Assessment & Plan Assessment & Plan (1) Opioid use disorder: Comment: She is doing well Code(s): F11.90 - Opioid use, unspecified, uncomplicated Category: Medical Plan: Continue same Suboxone written for Medications: New buprenorphine-naloxone 2-0.5 mg (Suboxone) place 1 strip/tab under (each) side of tongue 2 film buccal DAILY 60 ea 2RF 30 days
--- OUTSIDE RECORDS SUMMARY | 2024-12-06 14:19 | XMS_ITS | Encounter Summary ---
Author Organization [facility] Address [address] [place] [address] Care Team Providers Care Validation Architect Name Role Phone Bertha Bell Primary Care Provider [phone] Encounter Details Date Type Department Care Team (Late st Contact Info) Description 10/31/2023 Orders Only [facility] 2 Rad ACT 1 [address] [place] [address] Liz Garcia MD [address] [place] [address] Social History Tobacco Use Types Packs/Day Years [...] Info) Description 12/27/2024 11:30 AM EDT Follow-Up [facility] Liver Transplant Services [address] [place] [address] Melony Jules MD [address] [place] [address] 12/27/2024 12:00 PM EDT Social Work [facility] Liver Transplant Services [address] [place] [address] Melony Jules MD [address] [place] [address] Darron-Brandie Hawkins, [address] Transplant Services - -[address] [place] [address] documented as of this encounter Visit Diagnoses Not on filedocumented in this encounter Care Teams Validation Architect Relationship Specialty Start Date End Date Bertha Bell PCP - General Family Medicine 08/29/20 documented as of this encounter
--- OUTSIDE RECORDS SUMMARY | 2024-12-06 14:19 | XMS_ITS ---
Author Organization [facility] Address [address] [place] [address] Care Team Providers Care School Age Program Associate Name Role Phone RayBertha Primary Care Provider [phone] Transplant Episode Liver Candidate [facility] ([place], [place]) - COUNTS INCLUDE [facility] BEDS AT [facility] Center waitlisted on 10/03/2021 Marked as Active on 10/03/2021 Liver CoordinatorIvelisse Rod RN Phone: N/A Fax: N/A Email: N/A Scores Score Value Updated Expires Exceptions/Wen sons CPRA Not available UNOS MELD 8 03/04/2024 03/04/2025 MELD (Calc) 8 03/03/2024 [facility] Diagnosis Organ Primary Contributory Liver Alcoholic Cirrhosis Care Team Name Role Phone Fax Email Ivelisse Rod RN Liver Coordinator N/A N/A N/A Melony Jules MD Operations Specialists [phone] [email or web address] Referring Physician [phone] N/A Events Pre-Transplant Referred: 08/29/2020 Evaluation began: 12/18/2020 Committee: 02/14/2021 Center waitlisted: 10/03/2021 Appointments (11/06/2024 - 01/06/2025) When With Visit Type Description 12/27/2024 Transplant - Toby Da Silva Follow Up 12/27/2024 Transplant - Toby Jules Follow Up
--- OUTSIDE RECORDS SUMMARY | 2024-12-06 14:19 | XMS_ITS | Encounter Summary ---
Author Organization [facility] Address [address] [place] [address] Care Team Providers Care Global Regulatory Affairs Manager Name Role Phone Bertha Bell Primary Care Provider [phone] Encounter Details Date Type Department Care Team (Late st Contact Info) Description 10/24/2020 Orders Only [facility] Interventional Radiology [address] [place] [address] Eddie Mejia MD [address] [place] [address] Social History Tobacco Use Types Packs/Day Years [...] Info) Description 12/27/2024 11:30 AM EDT Follow-Up [facility] Liver Transplant Services [address] [place] [address] Melony Jules MD [address] [place] [address] 12/27/2024 12:00 PM EDT Social Work [facility] Liver Transplant Services [address] [place] [address] Melony Jules MD [address] [place] [phone] Darron-Brandie Hawkins, [address] Transplant [facility] - -[address] [place] [address] documented as of this encounter Visit Diagnoses Not on filedocumented in this encounter Care Teams Global Regulatory Affairs Manager Relationship Specialty Start Date End Date Bertha Bell PCP - General Family Medicine 08/29/20 documented as of this encounter
--- OUTSIDE RECORDS SUMMARY | 2024-12-06 14:19 | XMS_ITS | Encounter Summary ---
Author Organization [facility] Address [address] [place] [address] Care Team Providers Care Buggy Operator Name Role Phone Bertha Bell Primary Care Provider [phone] Encounter Details Date Type Department Care Team (Late st Contact Info) Description 05/03/2024 Orders Only [facility] ACC Building Mammography [address] [place] [address] 5th [place] [address] Yohan Wilson MD [address] [place] [address] Social History Tobacco Use Types Packs/Day Years [...] Info) Description 12/27/2024 11:30 AM EDT Follow-Up [facility] Liver Transplant Services [address] [place] [address] Melony Jules MD [address] [place] [address] 12/27/2024 12:00 PM EDT Social Work [facility] Liver Transplant Services [address] [place] [address] Melony Jules MD [address] [place] [address] Darron-Brandie Hawkins, [address] Transplant Services - [address] [address] documented as of this encounter Visit Diagnoses Not on filedocumented in this encounter Care Teams Buggy Operator Relationship Specialty Start Date End Date Bertha Bell PCP - General Family Medicine 08/29/20 documented as of this encounter
--- OUTSIDE RECORDS SUMMARY | 2024-12-06 14:19 | XMS_ITS | Clinical Summary ---
Author Organization [facility] Address [address] [place] [address] Care Team Providers Care Shrimp Header Name Role Phone Bertha Bell Primary Care Provider [phone] Allergies Active Allergy Reactions Criticality Noted Date [...] MOUTH TWICE A DAY 180 capsule 1 10/08/2024 Active Active Problems Problem Noted Date Diagnosed Date Generalized anxiety disorder 01/01/2021 Panic disorder with agoraphobia 01/01/2021 Depression 01/01/2021 Cirrhosis of liver with ascites 08/29/2020 Colitis 08/29/2020 Decreased appetite 08/29/2020 Diarrhea 08/29/2020 [...] Diagnosed Date Resolved Date 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 Encounters Date Type Department Care Team Description 10/08/2024 Refill [facility] [address] [place], [place] [id number] Melony Jules MD from Last 3 Months Immunizations Immunization Administration Dates Next Due Hepatitis [...] Info) Description 12/27/2024 11:30 AM EDT Follow-Up [facility] [address] [place] [address] Melony Jules MD [address] [place] [address] 12/27/2024 12:00 PM EDT Social Work [facility] [address] [place] [address] Melony Jules MD [address] [place] [address] Brandie Da Silva, [address] [address] Health Maintenance Due Date Last Done Comments Cervical Cancer Screening 1975 Cologuard 1977 Colon Cancer Screening 1975 Colonoscopy 1977 FOBT / Fit Test 1977 HPV and Pap Smear 1977 Pap Smear 1977 Sigmoidoscopy 1977 Medicare AWV 1978 Mammogram 2017 COVID-19 Vaccine ( season) 2024 11/17/2021, 05/15/2021, 04/05/2021 Alcohol/Substance Use Screening 07/28/2024 Depression Screening and Follow-Up 07/28/2024 Social Drivers of Health Estefani ual Screening 07/28/2024 Influenza Vaccine (Season Ended) 2025 04/05/20 21 Pneumococcal Vaccine: Pediat paula (0-5 Years) and [...] Screening Completed 12/18/2020 Procedures * Due to [place] [employer] law, this organization might not be sharing negative HIV tests. Procedure Name Priority Date/Time Associated Diagnosis Comments HEPATITIS C ANTIBODY W/REFLEX TO HCV RNA, QUANTITATIVE PCR Routine 12/18/2020 10:52 AM EDT Encounter for pre-transplant evaluation for liver transplant from Last 3 Months or Most Recently Relevant to Health Maintenance Results * Due to [place] [employer] law, this organization might not be sharing negative HIV tests. * Hepatitis C Antibody w/Reflex to PCR (12/18/2020 10:52 AM EDT) Hepatitis C Antibody NON-REACT FATOU NON-REACT FATOU 12/18/2020 9:08 PM EDT [employer] Signal To Cut-Off 0.10 <1.00 12/18/2020 9:08 PM EDT [employer] Comment: HCV antibody was non-reactive. There is no laboratory evidence of HCV infection. In most cases, no further action is required. However, if recent HCV exposure is suspected, a test for HCV RNA (test code 20129) is suggested. For additional information please refer to http://education.[employer]/faq/IRI26r7 (This link is being provided for informational/ educational purposes only.) Blood Structure of peripheral vein / Unknown Venipuncture / Unknown 12/18/2020 10:52 AM EDT 12/18/2020 11:28 AM EDT Narrative [facility] - 12/18/2020 9:08 PM EDT [facility] Received Date: us Will Mclaughlin MD LAB BLOOD ORDERABLES Final Re sult [facility] [address] [facility] 3rd Floor, [place] [address], [employer] [facility] [address] [facility] 3rd Floor, [place] [address], [place] [phone] from Last 3 Months or Most Recently Relevant to Health Maintenance Insurance MEDICARE Member Subscriber Plan / Payer (Ef fective 2022-Present) Name:Delores Montalvo Member ID:[id number] Relation to Subscriber:Self Name:Delores Montalvo Subscriber ID:[id number] Payer ID:[id number] Group ID:Not on file Type:Not on file Address: [address] MEDICARE Advance Directives Documents on File Type Date Recorded Patient Superintendent Car Construction Expl [facility] Proxy 01/09/2021 12:04 PM 11-26 Care Teams Shrimp Header Relationship Specialty Start Date End Date Bertha Bell PCP - General Family Medicine 08/29/20
--- OUTSIDE RECORDS SUMMARY | 2024-12-06 14:19 | XMS_ITS | Encounter Summary ---
Author Organization [facility] Address [address] [place] [address] Care Team Providers Care Nnps Name Role Phone Bertha Bell Primary Care Provider Encounter Details Date Type Department Care Team (Late st Contact Info) Description 02/16/2021 Lab Requisition [facility] Three Lab [address] [place] [address] Fritz Chew MD Social History Tobacco Use [...] Info) Description 12/27/2024 11:30 AM EDT Follow-Up [facility] [address] [place] [address] Melony Jules MD [address] [place] [place] [address] 12/27/2024 12:00 PM EDT Social Work [facility] [address] [place] [address] Melony Jules MD [address] [place] [place] [address] Darron-Shruthi Brandie BrittonScooter, CRAFT CENTER DIRECTOR [address] [facility] Transplant Services - [address] [place] [address] documented as of this encounter Procedures * Due to [facility] law, this organization might not be sharing negative HIV tests. Procedure Name Priority Date/Time Associated Diagnosis Comments TISSUE EXAM Routine 02/16/2021 11:46 AM EDT documented in this encounter Results * Due to [place] state law, this organization might not be sharing negative HIV tests. * (ABNORMAL) Tissue Exam (02/16/2021 11:46 AM EDT) Final Diagnosis Review of Outside Slides Received from [facility], [place], [place], Labeled [id number] , Procedure Date 11/07/2020: Liver, Biopsy: - [...] history of pulmonary sarcoidosis was noted from [facility]) and among others. Unstained tissue slides were requested from the outside hospital for additional study and result will be reported in an addendum if tissue is received. [facility] 02/26/2021 10:01 AM EDT [facility] at 1001 EDT Clinical History Increased LFT's [facility] 02/26/2021 10:01 AM EDT [employer] [facility] Gross Consult Client Facility: [facility] Slide Identification: [id number] Number of Glass Slides Received: 6 Number of Blocks Received: 0 Client Pathologist: Madelin Verdin MD Accompanying Report Received: Yes [facility] 02/26/2021 10:01 AM EDT [facility] Gross Description User Grossing complete by Yeimi Ojeda on 02/16/2021 11:46 AM [facility] 02/26/2021 10:01 AM EDT [facility] Embedded Images [facility] 02/26/2021 10:01 AM EDT [facility] Resulting Agency Case was signed out at [facility], Department of Pathology, [facility] 3 CLIA [id number] [facility] 02/26/2021 10:01 AM EDT [employer] [facility] Abnormal Yes(A) (none) [facility] 02/26/2021 10:01 AM EDT [facility] Tissue Liver structure / Unknown 02/16/2021 11:46 AM EDT 02/16/2021 11:46 AM EDT us Fritz Chew MD LAB PATHOLOGY/CYTOLOGY ORDERABLE S Final Result [facility] [address] [place] [address], documented in this encounter Visit Diagnoses Not on filedocumented in this encounter Care Teams Nnps Relationship Specialty Start Date End Date Bertha Bell PCP - General Family Medicine 08/29/20 documented as of this encounter
--- OUTSIDE RECORDS SUMMARY | 2024-12-06 14:19 | XMS_ITS | Referral Summary ---
Author Organization [facility] Address [address] [place] [address] Care Team Providers Care Open Hearth Laborer Name Role Phone Bertha Bell Primary Care Provider [phone] Encounters Date Type Department Care Team Description 10/08/2024 Refill [facility] [address] [place] [address] Melony Jules MD from Last 3 Months Allergies Active Allergy Reactions Criticality Noted Date [...] Info) Description 12/27/2024 11:30 AM EDT Follow-Up [facility] [address] [place] [address] Melony Jules MD [address] [place] [address] 12/27/2024 12:00 PM EDT Social Work [facility] [address] [place] [address] Melony Jules MD [address] [place] [address] Brandie Da Silva, [address] Transplant [address] [address] Procedures * Due to [facility] law, this organization might not be sharing negative HIV tests. Procedure Name Priority Date/Time Associated Diagnosis Comments HEPATITIS C ANTIBODY W/REFLEX TO HCV RNA, QUANTITATIVE PCR Routine 12/18/2020 10:52 AM EDT Encounter for pre-transplant evaluation for liver transplant from Last 3 Months or Most Recently Relevant to Health Maintenance Results * Due to [facility] law, this organization might not be sharing negative HIV tests. * Hepatitis C Antibody w/Reflex to PCR (12/18/2020 10:52 AM EDT) Hepatitis C Antibody NON-REACT FATOU NON-REACT FATOU 12/18/2020 9:08 PM EDT [employer] Signal To Cut-Off 0.10 <1.00 12/18/2020 9:08 PM EDT [employer] Comment: HCV antibody was non-reactive. There is no laboratory evidence of HCV infection. In most cases, no further action is required. However, if recent HCV exposure is suspected, a test for HCV RNA (test code 19138) is suggested. For additional information please refer to http://education.[employer]/faq/YKV55f4 (This link is being provided for informational/ educational purposes only.) Blood Structure of peripheral vein / Unknown Venipuncture / Unknown 12/18/2020 10:52 AM EDT 12/18/2020 11:28 AM EDT Narrative [facility] - 12/18/2020 9:08 PM EDT [facility] Received Date:[id number] us Will Mclaughlin MD LAB BLOOD ORDERABLES Final Re sult [facility] [address] [facility] 3rd Floor, [place] [address], [place] [phone] [facility] [address], [place] [address], [place] [phone] from Last 3 Months or Most Recently Relevant to Health Maintenance Insurance MEDICARE [facility] Advance Directives Documents on File Type Date Recorded Patient Solid Waste Analyst Expl [facility] Care Proxy 01/09/2021 12:04 PM 11-26 Care Teams Open Hearth Laborer Relationship Specialty Start Date End Date Bertha Bell PCP - General Family Medicine 08/29/20
--- OUTSIDE RECORDS SUMMARY | 2024-12-06 14:19 | XMS_ITS | Encounter Summary ---
Author Organization [facility] Address [address] [place] [address] Care Team Providers Care Vending Machine Operator Name Role Phone Bertha Bell Primary Care Provider [phone] Encounter Details Date Type Department Care Team (Late st Contact Info) Description 10/24/2020 Orders Only [facility] CT Scan [address] [place] [address] Henrik Morales MD [address] [place] [address] Social History Tobacco Use Types Packs/Day Years [...] EDT Follow-Up [facility] Services [address] [place] [address] Melony Jules MD [address] [place] [address] 12/27/2024 12:00 PM EDT Social Work [facility] [address] [place] [address] Melony Jules MD [address] [place] [address] Darron-Brandie Hawkins, [address] Transplant Services - -[address] [place] [address] documented as of this encounter Visit Diagnoses Not on filedocumented in this encounter Care Teams Vending Machine Operator Relationship Specialty Start Date End Date Bertha Bell PCP - General Family Medicine 08/29/20 documented as of this encounter
--- OUTSIDE RECORDS SUMMARY | 2024-12-06 14:19 | XMS_ITS | Clinical Summary ---
Author Organization [facility] Address [address] [place] [address] Phone Care Team Providers Care Motor And Generator Brush Maker Name Role Phone Chris Hernandez MD Primary Care Provider [phone] Allergies No known active allergies Surgical History Surgery Date Site/Laterality Comments CHOLECYSTECTOMY PROCEDURE: HISTORICAL CHOLECYSTECTOMY OTHER SURGICAL HISTORY 06/27/2020 PROCEDURE: ND BIOPSY LIVER WEDGE; COMMENT: by Dr. Duke Mendieta - liver with cirrhosis and granulomatous inflammation, mild macrosteatosis OTHER SURGICAL HISTORY 06/27/2020 PROCEDURE: ND LAPS SURG CHOLECYSTECTOMY W/CHOLANGIOGRAPHY; COMMENT: by Dr. 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 Depression with anxiety 02/07/2022 DX:Depre [...] Breast Cancer Screening 01/31/2023 01/31/2021 COVID-19 Vaccine (2023-2 5 season) 2024 11/17/2021, 05/15/2021, 04/05/2021 Hypertension/CHF/CAD Annual BMP Blood Test 06/17/2024 Influenza Vaccine (Season Ended) 2025 04/05/2021 Pneumococcal Vaccine: Pediatrics (0 to 5 Years) [...] age to complete this topic Meningococcal B Vaccine Aged Out No l onger eligible based on patient's age to complete this topic RSV Immunization Patients Under 20 months Aged Out No longer eligible b ased on patient's age to complete this topic Varicella Vaccines Aged Out No longer eligible based on patient's age to complete this topic Procedures Procedure Name Priority Date/Time Associated Diagnosis Comments [facility] SCREENING DIGITAL Routine 01/31/2021 2:13 PM EDT Encounter for screening mammogram for malignant neoplasm of breast from Last 3 Months or Most Recently Relevant to Health Maintenance Results * [facility] SCREENING DIGITAL (01/31/2021 2:13 PM EDT) Anatomical Region Laterality Modality Mammography 01/31/2021 9:22 AM EDT Narrative 01/31/2021 2:13 PM EDT [facility] Diagnostic Imaging Department [address] [place] [address] Patient: ??DELORES MONTALVO ?/Age/Sex: 1975 - 45 - F Unit#: ??[id number] ? Location/Status: ??SPDIMAM/REG CLI ? Mnemonic/Ordering Site: ??DIGSC/SPMAM Ordering Physician: ??BERTHA BELL MD [facility] Screening Digital - 01/31/21952 EXAM: [facility] Screening Digital EXAM DATE AND TIME: 01/31/2021 9:54 AM HISTORY: ??Screening. Baseline exam. COMPARISON: ??No comparison studies. TECHNIQUE: CC and MLO views of both breasts were obtained using full field digital mammography. Bilateral digital breast tomosynthesis was performed in the MLO projection. Computer aided detection with the [employer] 7.2-H was employed. TISSUE DENSITY: d. The [...] Routine screening mammogram BILATERAL in 1 year. 54978, 12013 3342F, 7025F Dictating Physician: ??LINDA BROOKS MD Electronically Signed by: ??LINDA BROOKS MD Dic Date/Time: ??01/31/21 1412 Sign date/Time: ??01/31/21 1413 Procedure Note Linda Brooks MD - 07/24/2022 [facility] Diagnostic Imaging Department [address] [place] [address] Patient: DELORES MONTALVO D.O.B./Age/Sex: 1975 - 45 - F Unit#: [id number] Location/Status: [facility] Mnemonic/Ordering Site: [facility] Ordering Physician: BERTHA BELL MD [facility] Screening Digital - 01/31/21 - 952 EXAM: [facility] Screening Digital EXAM DATE AND TIME: 01/31/2021 9:54 AM HISTORY: Screening. Baseline exam. COMPARISON: No comparison studies. TECHNIQUE: CC and MLO views of both breasts were obtained using fullfield digital mammography. Bilateral digital breast tomosynthesis was performedin the MLO projection. Computer aided detection with the [employer]2-Skadooshas employed. TISSUE DENSITY: d. The breasts are [...] Routine screening mammogram BILATERAL in 1 year. 22728, 34148 3342F, 7025F Dictating Physician: LINDA BROOKS MD Electronically Signed by: LINDA BROOKS MD Dic Date/Time: 01/31/21 1412 Sign date/Time: 01/31/21 1413 Bertha Bell MD IMG BI PROCEDURES Final Result from Last 3 Months or Most Recently Relevant to Health Maintenance Insurance MEDICAID - [place] MEDICARE Care Teams Motor And Generator Brush Maker Relationship Specialty Start Date End Date Chris Hernandez MD PCP - General Internal Medicine 02/07/22
== END 2024-12-06 14:56 | disposition home or self-care (01) ==
LOC: HO.HCC 14:03
PROVIDERS: PCP Internal Medicine; Visit Provider Internal Medicine
DX: F11.90 Opioid use, unspecified, uncomplicated (principal)
CPT/HCPCS: 99213

== ENCOUNTER → 2024-12-06 14:02 | Outpatient (BNVA) | payer MEDICARE, MEDICAID, SELFPAY | PROVIDERS: PCP Internal Medicine; Visit Provider Internal Medicine | DX: F11.20 Opioid dependence, uncomplicated (principal) | CPT/HCPCS: 99212 ==

== ENCOUNTER 2025-03-09 10:39 | Outpatient (AMB) | payer MEDICARE, MEDICAID, SELFPAY ==
[2025-03-09 10:52] VITALS: BP 138/78; PULSE 86; O2SAT 96; BMI 26.7
--- NOTE | 2025-03-09 10:52 | A.OFFVIS_ITS ---
Vital Signs 03/09/25 10:52 Height 5 ft 2 in Weight 146 lb BMI 26.7 BP 138/78 Pulse 86 Pulse Oximetry (%) 96 Intake Visit Reasons: Mat Allergies albumin colloid, human Allergy (Severe, Verified 08/19/22 09:39) Anaphylaxis Medication List - Last Reconciled 03/09/25 by NURY TeresaC buprenorphine-naloxone 2-0.5 mg (Suboxone) 2 film buccal DAILY 30 days HPI Comments Details: The patient is a 50 year old female presents for follow-up visit r/t HARLEEN in sustained remission. Denies use of opioids, alcohol, cannabis or other substances. Does continue to smoke an average of 3 cigarettes per day, education provided re: risk reduction strategies to minimize smoking. Review of Systems Const All systems reviewed & are unremarkable except as noted in HPI and below Physical Exam Vital Signs: Last Vital Signs Pulse 86 03/09/25 10:52 BP 138/78 03/09/25 10:52 Pulse Ox 96 03/09/25 10:52 BMI result Body Mass Index 26.7 Psych Appearance: well kempt Mental Status: mental status grossly normal Speech and movement: Normal speech and movement present Affect: normal affect Attitude: cooperative Thought process: Normal thought process present Thought content: Normal thought content present Insight: Good insight present (Psych) Judgement: Good judgement present (Psych) Assessment & Plan Assessment & Plan (1) Opioid use disorder in remission: Code(s): F11.91 - Opioid use, unspecified, in remission Category: Medical Plan The plan of care is to continue with buprenorphine-naloxone 2-0.5 mg BID, and reduce cigarette smoking. Follow up in 3 months or sooner, if needed. Medications: Refilled buprenorphine-naloxone 2-0.5 mg (Suboxone) place 1 strip/tab under (each) side of tongue 2 film buccal DAILY 60 ea 2RF 30 days Patient Instructions: - Continue with buprenorphine-naloxone 2-0.5 mg as prescribed. - Reduce frequency/quantity of cigarette smoking. - Call with questions, concerns, or to report side effects/new onset of symptoms to [facility]. and concerns. - The patient verbalized understanding and agreed with plan of care. Coding Level of Care Code Est Pt Level 3 (04247) Diagnoses Opioid use disorder in remission F11.91
--- OUTSIDE RECORDS SUMMARY | 2025-03-09 11:28 | XMS_ITS ---
Author Name [facility] Organization Unknown Care Team Organization Name Specialty Phone Email Start Date End Da te [facility] Connie Aranda Primary Care 06/04/20222023
--- OUTSIDE RECORDS SUMMARY | 2025-03-09 11:28 | XMS_ITS | Referral Summary ---
Author Organization [facility] Address [address] [place] [address] Care Team Providers Care Aviation Safety Technician Name Role Phone Bertha Bell Primary Care Provider [phone] Encounters Date Type Department Care Team Description 03/07/2025 myChart Message [facility] Transplant Services [address] [place] [address] Iliana Porter, DIALLO MELD labs 03/07/2025 Telephone [facility] Transplant Department [address] [place] [address] Iliana Porter RN 03/07/2025 Orders Only [facility] Transplant Department [address] [place] [address] Iliana Porter, RN Alcoholic cirrhosis of liver without ascites (HCC) (Primary Dx) 02/14/2025 Telephone [facility] Transplant Department [address] [place] [address] Ivelisse Rod RN Meld Update 01/27/2025 Telephone [facility] Transplant Department [address] [place] [address] Melony Jules MD 01/26/2025 Telephone [facility] Transplant Department [address] [place] [address] Ivelisse Rod RN 01/20/2025 Documentation [facility] Transplant Department [address] [place] [address] Brandie Da Silva [facility] 01/17/2025 Telephone [facility] Transplant Department [address] [place] [address] Ivelisse Rod RN 12/27/2024 Orders Only [facility] Transplant Department [address] [place] [address] Ivelisse Rod, RN Alcoholic cirrhosis of liver without ascites (HCC) (Primary Dx) from Last 3 Months Allergies Active Allergy [...] 72 03/05/2022 12:00 PM EDT Temperature 36 C (96.8 F) 09/18/2021 10:35 AM EST Respiratory Rate 18 [...] Care Team (Late st Contact Info) Description 06/13/2025 11:00 AM EST Follow-Up [facility] [address] [place] [address] Melony Jules MD [address] [place] [address] 06/13/2025 11:30 AM EST Social Work [facility]plant [facility] [address] [place] [address] Melony Jules MD [address] [place] [address] Brandie Da Silva, [facility] Transplant Services - [address] [place] [address] Insurance MEDICARE Member Subscriber Plan / Payer (Ef fective 2022-Present) Name:Delores Montalvo Member ID:[id number] Relation to Subscriber:Self Name:Delores Montalvo Subscriber ID:[id number] Payer ID:[id number] Group ID:Not on file Type:Not on file Address: [address] [place], [place] [id number] [place] [address] MEDICARE [facility] Advance Directives Documents on File Type Date Recorded Patient Balance Staff Staker Expl [facility] Care Proxy 01/09/2021 12:04 PM 05-2 Care Teams Aviation Safety Technician Relationship Specialty Start Date End Date Bertha Bell PCP - General Family Medicine 08/29/20
--- OUTSIDE RECORDS SUMMARY | 2025-03-09 11:28 | XMS_ITS | Clinical Summary ---
Author Organization [facility] Address [address] [place] [address] Phone Care Team Providers Care Obstetrician And Gynaecologist Name Role Phone Physician, No Pcp Primary Care Provider Unavaila ble Allergies No known active allergies Surgical History Surgery Date Site/Laterality Comments CHOLECYSTECTOMY PROCEDURE: HISTORICAL CHOLECYSTECTOMY OTHER SURGICAL HISTORY 06/27/2020 PROCEDURE: [place] BIOPSY LIVER WEDGE; COMMENT: by Dr. Dkue Mendieta - liver with cirrhosis and granulomatous inflammation, mild macrosteatosis OTHER SURGICAL HISTORY 06/27/2020 PROCEDURE: NJ LAPS SURG CHOLECYSTECTOMY W/CHOLANGIOGRAPHY; COMMENT: by Dr. [...] Panel) 06/30/2022 Colorectal Cancer Screening: Colonoscopy 06/30/2022 HIV Screening 06/30/2022 Medicare Annual Wellness Visit 06/30/2022 Social Influencers of Health Screening 06/30/2022 Breast Cancer Screening 01/31/2023 01/31/2021 COVID-19 Vaccine (2023-2 5 season) 2024 11/17/2021, 05/15/2021, 04/05/2021 Hypertension/CHF/CAD Annual BMP Blood Test 06/17/2024 Depression Screening 07/28/2024 Influenza Vaccine (#1) 2025 04/05/2021 Pneumococcal Vaccine: Pediatrics (0 to 5 Years) and At-Risk Patients (6 to 49 Years) (3 of 3 - PCV20 or [...] Procedure Name Priority Date/Time Associated Diagnosis Comments [facility] SCREENING DIGITAL Routine 01/31/2021 2:13 PM EDT Encounter for screening mammogram for malignant neoplasm of breast from Last 3 Months or Most Recently Relevant to Health Maintenance Results * [facility] SCREENING DIGITAL (01/31/2021 2:13 PM EDT) Anatomical Region Laterality Modality Mammography 01/31/2021 9:22 AM EDT Narrative 01/31/2021 2:13 PM EDT [facility] Diagnostic Imaging Department [address] [place] [id number] Patient: DELORES MONTALVO D.O.B./Age/Sex: 1975 - 45 - F Unit#: [id number] Location/Status: [facility] CLI Mnemonic/Ordering Site: [facility] Ordering Physician: BERTHA BELL MD [facility] Screening Digital - 01/31/21952 EXAM: [facility] Screening Digital EXAM DATE AND TIME: 01/31/2021 9:54 AM HISTORY: Screening. Baseline exam. COMPARISON: No comparison studies. TECHNIQUE: CC and MLO views of both breasts were obtained using full field digital mammography. Bilateral digital breast tomosynthesis was performed in the MLO projection. Computer aided detection with the [employer] 7.2-H was employed. TISSUE DENSITY: d. The [...] Routine screening mammogram BILATERAL in 1 year. 45990, 82331 3342F, 7025F Dictating Physician: LINDA BROOKS MD Electronically Signed by: LINDA BROOKS MD Dic Date/Time: 01/31/211411 Sign date/Time: 01/31/21 141 Procedure Note Linda Brooks MD - 07/24/2022 [facility] Diagnostic Imaging Department [address] [place] [address] Patient: DELORES MONTALVO D.O.B./Age/Sex: 1975 - 45 - F Unit#: [id number] Location/Status: [facility] Mnemonic/Ordering Site: [facility] Ordering Physician: BERTHA BELL MD [facility] Screening Digital - 01/31/21 - 952 EXAM: [facility] Screening Digital EXAM DATE AND TIME: 01/31/2021 9:54 AM HISTORY: Screening. Baseline exam. COMPARISON: No comparison studies. TECHNIQUE: CC and MLO views of both breasts were obtained using fullfield digital mammography. Bilateral digital breast tomosynthesis was performedin the MLO projection. Computer aided detection with the [employer] 7.2-NiteTablesas employed. TISSUE DENSITY: d. The breasts are [...] Routine screening mammogram BILATERAL in 1 year. 56499, 83028 3342F, 7025F Dictating Physician: LINDA RBOOKS MD Electronically Signed by: LINDA BROOKS MD Dic Date/Time: 01/31/21 1412 Sign date/Time: 01/31/21 1413 Bertha Bell MD IMG BI PROCEDURES Final Result from Last 3 Months or Most Recently Relevant to Health Maintenance Insurance [place] Care Teams Obstetrician And Gynaecologist Relationship Specialty Start Date End Date Physician, No Pcp PCP - General 12/26/22
== END 2025-03-09 11:09 | disposition home or self-care (01) ==
LOC: HO.HCC 10:39
PROVIDERS: PCP Internal Medicine; Visit Provider Clinical Nurse Specialist Psychiatric/Mental Health
DX: F11.91 Opioid use, unspecified, in remission (principal)
CPT/HCPCS: 99213

== ENCOUNTER → 2025-03-09 10:39 | Outpatient (BNVA) | payer MEDICARE, MEDICAID, SELFPAY | PROVIDERS: PCP Internal Medicine; Visit Provider Clinical Nurse Specialist Psychiatric/Mental Health | DX: F11.21 Opioid dependence, in remission (principal); F17.210 Nicotine dependence, cigarettes, uncomplicated | CPT/HCPCS: 99212 ==

== ENCOUNTER 2025-06-01 11:30 | Outpatient (AMB) | payer MEDICARE, MEDICAID, SELFPAY ==
[2025-06-01 11:37] VITALS: BP 160/100; PULSE 121; O2SAT 99; BMI 26.0
--- NOTE | 2025-06-01 11:37 | A.OFFVIS_ITS ---
Vital Signs 06/01/25 11:37 Height 5 ft 2 in Weight 142 lb BMI 26.0 BP 160/100 H Pulse 121 H Pulse Source Pulse Oximeter Pulse Oximetry (%) 99 Oxygen Delivery Method Room Air Intake Visit Reasons: MAT Allergies albumin colloid, human Allergy (Severe, Verified 06/01/25 11:38) Anaphylaxis HPI Comments Details: A 50-year-old female presents for a follow up visit r/t HARLEEN in sustained remission buprenorphine-naloxone 2-0.5 mg BID. Denies use of opiates, alcohol, and other substances. Engages in conversation re: coping with severe anxiety and unable to identify any known triggers for past 5 days. Denies suicidal/homicidal ideation, plan, or intent at present time of visit. Reports following up with a therapist at [facility], although hasn't had a session in several months. Review of Systems Const All systems reviewed & are unremarkable except as noted in HPI and below Physical Exam Vital Signs: Last Vital Signs Pulse 121 H 06/01/25 11:37 BP 160/100 H 06/01/25 11:37 Pulse Ox 99 06/01/25 11:37 Oxygen Delivery Method Room Air 06/01/25 11:37 BMI result Body Mass Index 26.0 Const General: cooperative Assessment & Plan Assessment & Plan (1) Opioid use disorder in remission: Code(s): F11.91 - Opioid use, unspecified, in remission Category: Medical Plan The plan of care is to continue with buprenorphine-naloxone 2-0.5 mg BID. Start on hydroxyzine 25 mg BID as needed for symptoms of severe anxiety. Encouraged to follow up with [facility]/therapist to resume therapy sessions, connect with psychiatric provider for further mental health evaluation and primary care provider to r/o medical reasons that may be contributing to symptoms of anxiety. Follow-up in 3 months or sooner if needed. Medications: New hydroxyzine pamoate (Vistaril) Take 1 capsule twice per day as needed for symptoms of anxiety 25 mg PO BID PRN 20 caps 0RF anxiety 30 days Refilled buprenorphine-naloxone 2-0.5 mg (Suboxone) place 1 strip/tab under (each) side of tongue 2 film buccal DAILY 60 ea 2RF 30 days Patient Instructions: - Continue with buprenorphine-naloxone as prescribed. - Start on hydroxyzine as prescribed. - Follow-up with [facility]. - Follow-up in 3 months or sooner if needed. - Call with questions, concerns, or to report side effects/new onset of symptoms to [facility]. - The patient verbalized understanding and agreed with plan of care. Coding Level of Care Code Est Pt Level 3 (85035) Diagnoses Opioid use disorder in remission F11.91
--- OUTSIDE RECORDS SUMMARY | 2025-06-01 14:07 | XMS_ITS | Encounter Summary ---
Author Organization [facility] Address [address] [place] [address] Care Team Providers Care Spinner Cap Frame Name Role Phone Bertha Bell Primary Care Provider [phone] Encounter Details Date Type Department Care Team (Late st Contact Info) Description 10/31/2023 Orders Only [facility] 2 Rad Act 1 [address] [place] [address] Liz Garcia MD [address] [place] [address] Social History Tobacco Use Types Packs/Day Years [...] Contact Info) Description 06/13/2025 11:00 AM EST Office Visit [facility] Liver Transplant Services [address] [place] [address] Melony Jules MD [address] [place] [address] documented as of this encounter Visit Diagnoses Not on filedocumented in this encounter Care Teams Spinner Cap Frame Relationship Specialty Start Date End Date O'Medina, Bertha PCP - General Family Medicine 08/29/20 documented as of this encounter
--- OUTSIDE RECORDS SUMMARY | 2025-06-01 14:07 | XMS_ITS | Encounter Summary ---
Author Organization [facility] Address [address] [place] [address] Care Team Providers Care Instrumentation Instructor Name Role Phone Bertha Bell Primary Care Provider Encounter Details Date Type Department Care Team (Late st Contact Info) Description 05/03/2024 Orders Only [address], 5th [place] [address] Yohan Wilson MD [address] [place] [phone] Social History Tobacco Use Types Packs/Day Years [...] Description 06/13/2025 11:00 AM EST Office Visit [facility] Liver Transplant Services [address] [place] [address] Melony Jules MD [address] [place] [address] documented as of this encounter Visit Diagnoses Not on filedocumented in this encounter Care Teams Instrumentation Instructor Relationship Specialty Start Date End Date Ray Bertha PCP - General Family Medicine 08/29/20 documented as of this encounter
--- OUTSIDE RECORDS SUMMARY | 2025-06-01 14:07 | XMS_ITS | Encounter Summary ---
Author Organization [facility] Address [address] [place] [address] Care Team Providers Care Equipment Or Machinery Cleaner Name Role Phone Bertha Bell Primary Care Provider [phone] Encounter Details Date Type Department Care Team (Late st Contact Info) Description 10/24/2020 Orders Only [facility] Interventional Radiology [address] [place] [address] Eddie Mejia MD [address] [place] [address] Social History Tobacco Use Types Packs/Day Years [...] Description 06/13/2025 11:00 AM EST Office Visit [facility] Liver Transplant Services [address] [place], [place] [phone] Melony Jules MD [address] [place] [address] documented as of this encounter Visit Diagnoses Not on filedocumented in this encounter Care Teams Equipment Or Machinery Cleaner Relationship Specialty Start Date End Date O'Medina, Bertha PCP - General Family Medicine 08/29/20 documented as of this encounter
--- OUTSIDE RECORDS SUMMARY | 2025-06-01 14:07 | XMS_ITS | Encounter Summary ---
Author Organization [facility] Address [address] [place] [address] Care Team Providers Care Scallop Binder Name Role Phone Bertha Bell Primary Care Provider [phone] Encounter Details Date Type Department Care Team (Late st Contact Info) Description 10/24/2020 Orders Only [facility] [address] [place], [place] [phone] Henrik Morales MD [address] [place], [place] [phone] Social History Tobacco Use Types Packs/Day Years [...] Description 06/13/2025 11:00 AM EST Office Visit [facility] Liver Transplant Services [address] [place], [place] [phone] eMlony Jules MD [address] [place], [place] [phone] documented as of this encounter Visit Diagnoses Not on filedocumented in this encounter Care Teams Scallop Binder Relationship Specialty Start Date End Date Ray Bertha PCP - General Family Medicine 08/29/20 documented as of this encounter
--- OUTSIDE RECORDS SUMMARY | 2025-06-01 14:07 | XMS_ITS | Encounter Summary ---
Author Organization [facility] Address [address] [place] [address] Care Team Providers Care Ob/Gyn Name Role Phone Bertha Bell Primary Care Provider [phone] Encounter Details Date Type Department Care Team (Late st Contact Info) Description 02/16/2021 Lab Requisition [facility] Three Lab [address] [place] [address] Fritz Chew MD Social History Tobacco Use [...] Description 06/13/2025 11:00 AM EST Office Visit [facility] Liver Transplant Services [address] [place] [phone] Melony Jules MD [address] [place], [place] [phone] documented as of this encounter Procedures * Due to [place] state law, this organization might not be sharing negative HIV tests. Procedure Name Priority Date/Time Associated Diagnosis Comments TISSUE EXAM Routine 02/16/2021 11:46 AM EDT documented in this encounter Results * Due to [place] state law, this organization might not be sharing negative HIV tests. * (ABNORMAL) Tissue Exam (02/16/2021 11:46 AM EDT) Final Diagnosis Review of Outside Slides Received from [facility], [place], [place], Labeled [id number] , Procedure Date 11/07/2020: Liver, Biopsy: - [...] history of pulmonary sarcoidosis was noted from [facility]) and among others. Unstained tissue slides were requested from the outside hospital for additional study and result will be reported in an addendum if tissue is received. [facility] MANUAL 02/26/2021 10:01 AM EDT [facility] at 1001 EDT Clinical History Increased LFT's [facility] MANUAL 02/26/2021 10:01 AM EDT [employer] Gross Consult Client Facility: [facility] Slide Identification: [id number] Number of Glass Slides Received: 6 Number of Blocks Received: 0 Client Pathologist: Madelin Verdin MD Accompanying Report Received: Yes [facility] MANUAL 02/26/2021 10:01 AM EDT [employer] Gross Description User Grossing complete by Yeimi Ojeda on 02/16/2021 11:46 AM [facility] [facility] 02/26/2021 10:01 AM EDT [facility] Embedded Images [facility] MANUAL 02/26/2021 10:01 AM EDT [facility] Resulting Agency Case was signed out at [facility], Department of Pathology, [facility] 3 CLIA [id number] [facility] MANUAL 02/26/2021 10:01 AM EDT [facility] Abnormal Yes(A) (none) [facility] 02/26/2021 10:01 AM EDT [facility] Tissue Liver structure / Unknown 02/16/2021 11:46 AM EDT 02/16/2021 11:46 AM EDT us Fritz Chew MD LAB PATHOLOGY/CYTOLOGY ORDERABLE S Final Result [facility] [address] [place] [id number], documented in this encounter Visit Diagnoses Not on filedocumented in this encounter Care Teams Ob/Gyn Relationship Specialty Start Date End Date Bertha Bell PCP - General Family Medicine 08/29/20 documented as of this encounter
--- OUTSIDE RECORDS SUMMARY | 2025-06-01 14:07 | XMS_ITS | Clinical Summary ---
Author Organization [facility] Address [address] [place] [address] Care Team Providers Care Director Business Development Name Role Phone Bertha Bell Primary Care Provider [phone] Allergies Active Allergy Reactions Criticality Noted Date [...] Encounters Date Type Department Care Team Description 03/25/2025 Telephone [facility] Transplant Department [address] [place] [phone] Iliana Porter RN 03/15/2025 Telephone [facility] Transplant Department [address] [place] [phone] Ivelisse Rod, RN Meld Update 03/11/2025 Telephone [facility] Transplant Department [address] [place] [address] Ivelisse Rod RN Meld Update 03/07/2025 myChart Message [facility] Liver Transplant Services [address] [place] [phone] Iliana Porter RN MELD labs 03/07/2025 Telephone [facility] Transplant Department [address] [place] [address] Iliana Porter RN 03/07/2025 Orders Only [facility] Transplant Department [address] [place] [phone] Iliana Porter, DIALLO Alcoholic cirrhosis of liver without ascites (HCC) (Primary Dx) from Last 3 Months Immunizations Immunization Administration [...] Description 06/13/2025 11:00 AM EST Office Visit [facility] Liver Transplant Services [address] [place] [address] Melony Jules MD [address] [place] [address] Health Maintenance Due Date Last Done Comments Cervical Cancer Screening 1975 Cologuard 1975 Colon Cancer Screening 1975 Colonoscopy 1975 FOBT / Fit Test 1975 HPV and Pap Smear 1975 Pap Smear 1975 Sigmoidoscopy 1975 Medicare AWV 1978 Mammogram 2017 Alcohol/Substance Use Screening 07/28/2024 Depression Screening and Follow-Up 07/28/2024 Social Drivers of Health Estefani ual Screening 07/28/2024 COVID-19 Vaccine ( season) 2025 11/17/2021, 05/15/2021, 04/05/2021 Influenza Vaccine (#1) 2025 04/05/2021 Pneumococcal Vaccine: Pediat paula (0-5 Years) and At-Risk Patients (6-50 Years) (3 of 3 - PCV20 or PCV21) 2027 12/22/2020, 08/21/2006 DTaP,Tdap,and Td Vaccines (2 - Td or Tdap) 12/22/2030 12/22/2020, 05/10/2016 Tobacco Screening 07/28/2042 11/05/2023 RSV Vaccine (60+ years old a nd patients) (1 - 1-dose 75+ series) 02/05/2052 Hepatitis B Vaccines Completed 09/26/2020, 08/29/19 21 HIV Screening Completed 12/18/2020 Hepatitis C Screening Completed 12/18/2020 Procedures * Due to [place] [employer] law, this organization might not be sharing negative HIV tests. Procedure Name Priority Date/Time Associated Diagnosis Comments HEPATITIS C ANTIBODY W/REFLEX TO HCV RNA, QUANTITATIVE PCR Routine 12/18/2020 10:52 AM EDT Encounter for pre-transplant evaluation for liver transplant from Last 3 Months or Most Recently Relevant to Health Maintenance Results * Due to [place] [employer] law, this organization might not be sharing negative HIV tests. * Hepatitis C Antibody w/Reflex to PCR (12/18/2020 10:52 AM EDT) Hepatitis C Antibody NON-REACT FATOU NON-REACT FATOU 12/18/2020 9:08 PM EDT [facility] Signal To Cut-Off 0.10 <1.00 12/18/2020 9:08 PM EDT [facility] Comment: HCV antibody was non-reactive. There is no laboratory evidence of HCV infection. In most cases, no further action is required. However, if recent HCV exposure is suspected, a test for HCV RNA (test code 82165) is suggested. For additional information please refer to http://education.[employer]/faq/ABZ35r1 (This link is being provided for informational/ educational purposes only.) Blood Structure of peripheral vein / Unknown Venipuncture / Unknown 12/18/2020 10:52 AM EDT 12/18/2020 11:28 AM EDT Narrative [facility] - 12/18/2020 9:08 PM EDT [facility] Received Date: Will Mclaughlin MD LAB BLOOD ORDERABLES Final Re sult [facility] [address] [facility] [address], [place] [address], [place] [phone] [facility] [address] [facility] [address], [place] [address], [place] [phone] from Last 3 Months or Most Recently Relevant to Health Maintenance Insurance MEDICARE [facility] MEDICARE [facility] Advance Directives Documents on File Type Date Recorded Patient Adult Education Teacher Expl [facility] Care Proxy 01/09/2021 12:04 PM 05-2 Care Teams Director Business Development Relationship Specialty Start Date End Date Bertha Bell PCP - General Family Medicine 08/29/20
== END 2025-06-01 11:49 | disposition home or self-care (01) ==
LOC: HO.HCC 11:30
PROVIDERS: PCP Internal Medicine; Visit Provider Clinical Nurse Specialist Psychiatric/Mental Health
DX: F11.91 Opioid use, unspecified, in remission (principal)
CPT/HCPCS: 99213

== ENCOUNTER → 2025-06-01 11:30 | Outpatient (BNVA) | payer MEDICARE, MEDICAID, SELFPAY | PROVIDERS: PCP Internal Medicine; Visit Provider Clinical Nurse Specialist Psychiatric/Mental Health | DX: F11.91 Opioid use, unspecified, in remission (principal); F41.9 Anxiety disorder, unspecified | CPT/HCPCS: 99212 ==